=== PATIENT | male | born 1980 | race Two or more races ===

== ENCOUNTER 2025-10-24 15:09 | Emergency (ER) | payer BC, SELFPAY ==
[2025-10-24 15:37] VITALS: BP 165/95; PULSE 121; RESP 18; TEMP 37.7; O2SAT 97; BMI 36.6
--- NOTE | 2025-10-24 15:50 | PD.EDDENTL ---
ED Dental RME/HPI General Chief complaint: Dental/Oral/Throat Stated complaint: LEFT SIDED TOOTH PAIN Time Seen by Provider: 10/24/25 15:52 Source: patient Arrival date/time: 10/24/25 15:09 45-year-old male with no known medical history presents to the emergency room with left-sided bottom tooth pain x 3 days Mode of arrival: ambulatory Limitations: no limitations Related Data Home Medications ?Medication ?Instructions ?Recorded ?Confirmed tamsulosin 0.4 mg capsule 0.4 mg PO QHS 11/15/21 11/15/21 Previous Rx's ?Medication ?Instructions ?Recorded clindamycin HCl 300 mg capsule 300 mg PO TID 7 days #21 caps 10/24/25 hydrocodone 5 mg-acetaminophen 325 1 tab PO BID PRN pain #10 tabs 10/24/25 mg tablet Allergies Allergy/AdvReac Type Severity Reaction Status Date / Time NKA* Allergy Uncoded 10/24/25 15:11 ED Exam General Limitations: Present no limitations Course Quality Measures none Orders Category Date Time Status Acetaminophen Tab [Tylenol ES Tab] Med 10/24/25 16:01 Discontinued 1,000 mg PO X1 ONE Ketorolac Inj [Toradol Inj] Med 10/24/25 15:50 Discontinued 30 mg IM X1 ONE cefTRIAXone [Rocephin] 1,000 mg Med 10/24/25 15:50 Discontinued Lidocaine 1% Pf Vial 5ml [Xylocaine 1% 5 ml] 2.1 ml IM X1 Vital Signs Vital signs: Vital Signs Temperature 100 F 10/24/25 15:37 Pulse Rate 121 H 10/24/25 15:37 Respiratory Rate 18 10/24/25 15:37 Blood Pressure 165/95 H 10/24/25 15:37 Pulse Oximetry (%) 97 10/24/25 15:37 Oxygen Delivery Method Room Air 10/24/25 15:37 Dental / Oral MDM Narrative MDM Narrative:: 45-year-old male with no known medical history presents to the emergency room with left-sided bottom tooth pain x 3 days Patient is hemodynamically stable and in no apparent distress Physical examination shows left lower molar dental pain with palpation. The gingiva appears within normal limits and is nonerythemic. There is some tenderness when pushing on the tooth with a tongue blade. There is no fractured tooth or any signs of tooth decay. A shot of Toradol and antibiotics were given to the patient and the patient was educated to follow-up with his dentist in the next 24 to 48 hours Patient was discharged and educated to follow-up with primary care provider in the next 24 to 48 hours and return to the emergency room for any evidence of worsening signs or symptoms Patient data External records reviewed:: [facility] previous records Clinical information provided by:: patient Social determinants that could affect healthcare access:: none Patient has the following chronic illnesses:: No chronic illness How is presenting disease/condition affected by chronic disease/condition?: no chronic disease Evaluation data The following diagnostics were reviewed and interpreted by me:: lab results and radiology exam(s) Lab and/or radiology exams considered but not ordered:: Labs and radiology exams considered and ordered Interpretation Summary: N/A Medications / Prescriptions Medications or Prescriptions considered but not ordered:: Medication given Medication administrations:: Medication Administration History Discontinued Medications Acetaminophen (Acetaminophen 500 Mg Tablet) 1,000 mg PO X1 ONE Stop: 10/24/25 16:02 Last Admin: 10/24/25 16:23 Dose: 1,000 mg Documented By: Ceftriaxone Sodium 1,000 mg/ (Lidocaine HCl 2.1 ml) 0 mg IM X1 ONE Stop: 10/24/25 15:51 Last Admin: 10/24/25 16:23 Dose: 1,000 mg Documented By: Ketorolac Tromethamine (Ketorolac Inj 60 Mg/2 Ml Vial) 30 mg IM X1 ONE Stop: 10/24/25 15:51 Last Admin: 10/24/25 16:22 Dose: 30 mg Documented By: Medication given Consultations Consultation(s) initiated? (list below): No Diagnosis Dental Differential Diagnosis: dental caries, toothache and fracture of tooth Most likely diagnosis given after review of the tests above:: Tooth ache Admission Indicated Admission indicated?: not indicated Admission Request Was there a request for admission?: No Disposition Plan Disposition Plan: Discharge Discharge Attestation Discharge Attestation: The patient and all family members were given an opportunity to ask questions and understood the discharge instructions. Discharge instructions specifically effects, indications for sooner follow up or return to the emergency department, and the expected course of current diagnosis. Patient condition: Stable Discharge Plan Plan Patient Disposition: HOME (Self Care) Discharge Disposition comment: Stable Prescriptions/Referrals Prescriptions/Med Rec: New clindamycin HCl 300 mg capsule 300 mg PO TID 7 Days Qty: 21 0RF hydrocodone-acetaminophen 5-325 mg tablet 1 tab PO BID MDD 10mg PRN (Reason: pain) Qty: 10 0RF No Action tamsulosin 0.4 mg capsule 0.4 mg PO QHS Problem List Clinical Impression: Toothache Patient/Caregiver Discharge Instructions Education Materials: ED Dental Pain Additional Instructions: Please follow-up with your dentist in the next 24 to 48 hours Antibiotics and pain medication were sent to your pharmacy please pick them up and take them as indicated For any evidence of worsening signs or symptoms return to the emergency room immediately Print Language: Indonesian Stand Alone Forms: [employer] Award Info., Work/School Release, Patient Portal Info Letter PA/GOLDBEATER Supervising Physician PA/GOLDBEATER Supervising Physician: Dr. Lindsay
[2025-10-24] MEDS: KETOROLAC INJ 60 MG/2 ML VIAL 30 MG IM (16:22)
[2025-10-24] MEDS: ACETAMINOPHEN 500 MG TABLET 1000 MG PO (16:23)
== END 2025-10-24 18:49 | disposition home or self-care (01) ==
LOC: SERX 17:38
PROVIDERS: Emergency Provider Emergency Medicine
DX: K08.89 Other specified disorders of teeth and supporting structures (principal)
CPT/HCPCS: 96372; 99282; J0696; J1885; J3490; A9270